=== PATIENT | female | born 1960 | race Caucasian/White ===

== ENCOUNTER 2017-02-05 00:30 | Emergency (ER) | payer BC ==
[2017-02-05 00:44] VITALS: BP 142/94
[2017-02-05] MEDS ORDERED: Ondansetron 4 MG Tab.DIS PO ONE (01:03)
--- NOTE | 2017-02-05 01:06 | EDM.PDOC ---
ED HISTORY OF PRESENT ILLNESS - General Chief Complaint: Respiratory Problem Stated Complaint: COUGH FEVER NAUSEA/DRY COUGH Time Seen by Provider: 02/05/17 00:49 Source of Information: Reports: Patient, RN notes reviewed - History of Present Illness INITIAL COMMENTS - FREE TEXT/NARRATIVE: 56-year-old lady comes in with severe cough, postnasal drainage leading to nausea and vomiting especially when she tries to lie flat to sleep. Her symptoms first started about 5 days ago more with nasal and sinus congestion. The cough been started a few days ago and has been worsening over the last 2 days. She continues to have a lot of nasal and sinus congestion and drainage. She states that what she does blow from her nose is clear. She's had some chills but no major fever. She does not feel that she is coughing sputum from her chest. 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 Denies: fever HEENT: Reports: Sinus problem (Nasal and sinus congestion and postnasal drainage ), Throat pain (Gone) Respiratory: Reports: Cough (Frequent, severe, repetitive). Denies: Shortness of Breath, Wheezing, Sputum Cardiovascular: Reports: Chest pain (Mild chest discomfort with coughing) GI/Abdominal: Reports: Nausea, Vomiting. Denies: Abdominal pain Musculoskeletal: Reports: other (Generalized achiness) Neurological: Reports: Headache ED EXAM, GENERAL - Physical Exam Exam: See Below General Appearance: alert, mild distress Eye Exam: bilateral eye: PERRL Throat/Mouth: Normal inspection, Normal oropharynx Head: No: facial tenderness, sinus tenderness Neck: supple, full range of motion. No: lymphadenopathy (L), lymphadenopathy (R ) Respiratory/Chest: no respiratory distress, lungs clear, normal breath sounds. No: rhonchi, wheezing Cardiovascular: regular rate, rhythm Extremities: normal inspection, normal range of motion Neurological: alert, oriented, no motor/sensory deficits Skin Exam: Warm, Dry, Normal color Course - Vital Signs Last Recorded V/S: Last Vital Signs Temp 98.0 F 02/05/17 00:42 Pulse 82 02/05/17 00:42 Resp 18 02/05/17 00:42 BP 142/94 H 02/05/17 00:42 Pulse Ox 96 02/05/17 00:42 - Orders/Labs/Meds Meds: Medications Discontinued Medications Generic Name Dose Route Start Last Admin Trade Name Jose PRN Reason Stop Dose Admin Ondansetron HCl 4 mg 02/05/17 01:03 02/05/17 01:08 Zofran Odt PO 02/05/17 01:04 4 mg ONETIME ONE Administration - Re-Assessments/Exams Free Text/Narrative Re-Assessment/Exam: 02/05/17 02:44 patient is not looking for an antibiotic. She states she knows what she has is viral. SHe primarily feels she needs some Zofran to help her with the nausea, vomiting from the drainage. Zofran 4 mg ODT has been given. Discharge instructions as documented Departure - Departure Time of Disposition: 14:00 Disposition: Home, Self-Care 01 Condition: fair Clinical Impression: Viral upper respiratory infection, Bronchitis Instructions: Acute Bronchitis, [id number], Upper Respiratory Infection, Adult, [id number] Referrals: PCP,None [Primary Care Provider] - Forms: ED Department Discharge Additional Instructions: Drink plenty of fluids, vaporizer or humidifier as needed, continue decongestant type medication, a dose of Zofran 4 mg ODT has been given while here in the ED. You may continue that every 6-8 hours as needed for nausea or vomiting. Symptoms should now start gradually getting better day by day. Followup clinic if not much better within 3-4 days as expected, return to ED as needed
== END 2017-02-05 01:20 | disposition home or self-care (01) ==
LOC: JD.ED 00:30
DX: J40 Bronchitis, not specified as acute or chronic (principal); J06.9 Acute upper respiratory infection, unspecified; Z90.49 Acquired absence of other specified parts of digestive tract; Z98.890 Other specified postprocedural states; Z88.0 Allergy status to penicillin; Z88.1 Allergy status to other antibiotic agents; Z91.040 Latex allergy status
CPT/HCPCS: 99283; A9270

== ENCOUNTER 2019-09-25 07:32 | Emergency (ER) | payer BC ==
[2019-09-25 07:42] VITALS: PULSE 68
[2019-09-25] MEDS ORDERED: Ondansetron 4 MG/2 ML SDV IVPUSH ONE (07:47)
[2019-09-25] MEDS ORDERED: Sodium Chloride 0.9% 10 ML Syringe FLUSH PRN (07:47)
[2019-09-25] MEDS ORDERED: HYDROmorphone 1 MG/ML Syringe IVPUSH ONE ×2 (07:48→09:07)
[2019-09-25] MEDS ORDERED: Ketorolac 30 MG/ML SDV IVPUSH ONE (07:49)
[2019-09-25] MEDS ORDERED: Sodium Chloride 0.9% 1,000 ML IV SCH (08:00)
--- NOTE | 2019-09-25 09:07 | CT ---
CT abdomen and pelvis Technique: Multiple axial sections were obtained from above the dome of the diaphragm inferiorly through the pubic symphysis. Intravenous and oral contrast not utilized. Study performed as a ureteral stone protocol. Comparison: Prior CT abdomen and pelvis exam of 01/09/12. Findings: Large hiatal hernia is noted. Visualized lung bases show nothing acute. Kidneys show no abnormal calcifications. No ureteral dilatation is seen. No ureteral calcifications are seen. Noncontrast appearance of the liver and spleen shows no focal abnormality. Adrenal glands show no nodule. Pancreas is within normal limits. Aorta shows atherosclerotic change which continues into the iliac vessels. No retroperitoneal adenopathy or mesenteric abnormalities are seen. No pelvic mass or adenopathy is seen. Appendix is seen which is normal in size. Numerous diverticuli are seen off the sigmoid colon and lesser diverticuli within the descending colon. No inflammatory change of diverticulitis is seen. No free fluid or inflammatory change is appreciated. Bone window settings were reviewed which show mild scattered degenerative change within the spine. Small fat-containing umbilical hernia is noted. Impression: 1. Large hiatal hernia. 2. No renal calculi, ureteral dilatation or ureteral stone is seen. 3. Colonic diverticuli with no findings of diverticulitis. 4. Other findings which are believed to be incidental. Nothing acute is appreciated on noncontrast CT study of the abdomen and pelvis. Diagnostic code #2 This report was dictated in [place] Standard Time
--- NOTE | 2019-09-25 10:55 | EDM.PDOC ---
ED HPI GENERAL MEDICAL PROBLEM - General Chief Complaint: Back Pain or Injury Stated Complaint: BACK PAIN Time Seen by Provider: 09/25/19 07:41 Source of Information: Reports: Patient, Family History Limitations: Reports: No Limitations - History of Present Illness INITIAL COMMENTS - FREE TEXT/NARRATIVE: The patient presents with sever right flank pain and nausea. This started lat night when she was sitting in a chair. She has had trouble with her back before and she felt it was that but the pain got much worse. She tried a muscle relaxer this morning and it did not help. She says the pain does radiate to her stomach. She has no history of kidney stones. She has no fever , chills, cough, chest pain or shortness of breath. She has no dysuria or hematuria. Onset: Gradual Duration: Day(s): (Last night) Location: Reports: Abdomen, Back Quality: Reports: Sharp Severity: Severe Improves with: Reports: None Worsens with: Reports: None Associated Symptoms: Reports: Nausea/Vomiting. Denies: Chest Pain, Cough, Fever /Chills, Headaches, Shortness of Breath Right Flank Pain Score (Numeric/FACES): 10 - Related Data Allergies Allergy/AdvReac Type Severity Reaction Status Date / Time cephalexin [From Keflex] Allergy Cannot Verified 02/05/17 00:41 Remember codeine Allergy Cannot Verified 09/25/19 07:42 Remember latex Allergy Cannot Verified 02/05/17 00:41 Remember Penicillins Allergy Cannot Verified 02/05/17 00:41 Remember Home Meds: Home Meds HYDROmorphone [Dilaudid] 2 mg PO Q6H PRN #15 tab 09/25/19 [Rx] Sulfamethoxazole/Trimethoprim [Bactrim Ds Tablet] 1 each PO BID #14 tablet 09/25 [Rx] Past Medical History Gastrointestinal History: Reports: Other (See Below) Other Gastrointestinal History: partial fundelectomy [employer] History: Reports: Ectopic , - Past Surgical History GI Surgical History: Reports: Cholecystectomy, Hernia Repair/Other, Carter Fundoplication Female Surgical History: Reports: Tubal Ligation Musculoskeletal Surgical History: Reports: Arthroscopic Knee Social & Family History - Tobacco Use Smoking Status *Q: Never Smoker - Recreational Drug Use Recreational Drug Use: No ED ROS GENERAL - Review of Systems Review Of Systems: See Below Constitutional: Reports: No Symptoms HEENT: Reports: No Symptoms Respiratory: Reports: No Symptoms Cardiovascular: Reports: No Symptoms Endocrine: Reports: No Symptoms GI/Abdominal: Reports: Abdominal Pain, Nausea. Denies: Diarrhea, Vomiting : Reports: Flank Pain (right) Musculoskeletal: Reports: Back Pain ED EXAM,LOWER BACK PAIN/INJURY - Physical Exam Exam: See Below Exam Limited By: No Limitations General Appearance: Alert, Moderate Distress Ears: Normal External Exam Nose: Normal Inspection Head: Atraumatic, Normocephalic Neck: Normal Inspection Respiratory/Chest: No Respiratory Distress, Lungs Clear, Normal Breath Sounds Cardiovascular: Regular Rate, Rhythm, No Edema, No Murmur GI/Abdominal: Soft, Non-Tender, No Organomegaly, No Mass Back Exam: CVA Tenderness (R) Extremities: Normal Inspection Neurological: Alert, No Motor/Sensory Deficits, Oriented x 3 Course - Vital Signs Last Recorded V/S: Last Vital Signs Temp 98.6 F 09/25/19 07:40 Pulse 68 09/25/19 07:40 Resp 16 09/25/19 07:40 BP Pulse Ox 99 09/25/19 07:40 - Orders/Labs/Meds Orders: Active Orders 24 hr Category Date Time Status Peripheral IV Care [RC] . DIRECTED Care 09/25/19 07:48 Active Sodium Chloride 0.9% [Normal Saline] 1,000 ml Med 09/25/19 08:00 Active IV ASDIRECTED Sodium Chloride 0.9% [Saline Flush] Med 09/25/19 07:47 Active 10 ml FLUSH ASDIRECTED PRN ED Antiemetic Medication Reflex [OM.PC] Stat Oth 09/25/19 07:47 Ordered Peripheral IV Insertion Adult [OM.PC] Stat Oth 09/25/19 07:47 Ordered Medication Orders Sodium Chloride (Normal Saline) 1,000 mls @ 125 mls/hr IV ASDIRECTED ESTEPHANIA Last Admin: 09/25/19 08:24 Dose: 125 mls/hr Sodium Chloride (Saline Flush) 10 ml FLUSH ASDIRECTED PRN PRN Reason: Keep Vein Open Last Admin: 09/25/19 08:17 Dose: 10 ml Labs: Laboratory Tests 09/25/19 09/25/19 09/25/19 Range/Units 07:56 07:56 09:50 WBC 11.24 H (3.98-10.04) K/mm3 RBC 5.04 (3.98-5.22) M/mm3 Hgb 14.6 (11.2-15.7) gm/dl Hct 43.1 (34.1-44.9) % MCV 85.5 (79.4-94.8) fl MCH 29.0 (25.6-32.2) pg MCHC 33.9 (32.2-35.5) g/dl RDW Std Deviation 41.9 (36.4-46.3) fL Plt Count 230 (182-369) K/mm3 MPV 9.7 (9.4-12.3) fl Neut % (Auto) 82.1 H (34.0-71.1) % Lymph % (Auto) 12.6 L (19.3-51.7) % Jerome % (Auto) 4.5 L (4.7-12.5) % Eos % (Auto) 0.4 L (0.7-5.8) Baso % (Auto) 0.3 (0.1-1.2) % Neut # (Auto) 9.22 H (1.56-6.13) K/mm3 Lymph # (Auto) 1.42 (1.18-3.74) K/mm3 Jerome # (Auto) 0.51 H (0.24-0.36) K/mm3 Eos # (Auto) 0.05 (0.04-0.36) K/mm3 Baso # (Auto) 0.03 (0.01-0.08) K/mm3 Sodium 143 (136-145) mEq/L Potassium 3.8 (3.5-5.1) mEq/L Chloride 107 (98-107) mEq/L Carbon Dioxide 23 (21-32) mEq/L Anion Gap 16.8 H (5-15) BUN 14 (7-18) mg/dL Creatinine 0.9 (0.55-1.02) mg/dL Est Cr Clr Drug Dosing 58.12 mL/min Estimated GFR (MDRD) > 60 (>60) mL/min BUN/Creatinine Ratio 15.6 (14-18) Glucose 109 H (74-106) mg/dL Calcium 9.0 (8.5-10.1) mg/dL Total Bilirubin 0.6 (0.2-1.0) mg/dL AST 17 (15-37) U/L ALT 23 (14-59) U/L Alkaline Phosphatase 67 (46-116) U/L Total Protein 7.4 (6.4-8.2) g/dl Albumin 4.2 (3.4-5.0) g/dl Globulin 3.2 gm/dL Albumin/Globulin Ratio 1.3 (1-2) Lipase 116 (73-393) U/L Urine Color Light yellow (Yellow) Urine Appearance Clear (Clear) Urine pH 7.0 (5.0-8.0) Ur Specific [place] > or = 1.030 (1.005-1.030) Urine Protein 1+ H (Negative) Urine Glucose (UA) Negative (Negative) Urine Ketones 1+ H (Negative) Urine Occult Blood 1+ H (Negative) Urine Nitrite Negative (Negative) Urine Bilirubin Negative (Negative) Urine Urobilinogen 0.2 (0.2-1.0) Ur Leukocyte Esterase 1+ H (Negative) Urine RBC 5-10 H (0-5) /hpf Urine WBC 5-10 H (0-5) /hpf Ur Squamous Epith Cells 0-5 (0-5) /hpf Urine Bacteria Moderate H (FEW) /hpf Urine Mucus Rare (FEW) /hpf Meds: Medications Generic Name Dose Route Start Last Admin Trade Name Freq PRN Reason Stop Dose Admin Sodium Chloride 1,000 mls @ 125 mls/hr 09/25/19 08:00 09/25/19 08:24 Normal Saline IV 125 mls/hr ASDIRECTED ESTEPHANIA Administration Sodium Chloride 10 ml 09/25/19 07:47 09/25/19 08:17 Saline Flush FLUSH 10 ml ASDIRECTED PRN Administration Keep Vein Open Discontinued Medications Generic Name Dose Route Start Last Admin Trade Name Freq PRN Reason Stop Dose Admin Hydromorphone HCl 1 mg 09/25/19 07:48 09/25/19 08:07 Dilaudid IVPUSH 09/25/19 07:49 1 mg ONETIME ONE Administration Hydromorphone HCl 1 mg 09/25/19 09:07 09/25/19 09:30 Dilaudid IVPUSH 09/25/19 09:08 0.5 mg ONETIME ONE Administration Ketorolac Tromethamine 30 mg 09/25/19 07:49 09/25/19 08:02 Toradol IVPUSH 09/25/19 07:50 30 mg ONETIME ONE Administration Ondansetron HCl 4 mg 09/25/19 07:47 09/25/19 08:01 Zofran IVPUSH 09/25/19 07:48 4 mg ONETIME ONE Administration - Re-Assessments/Exams Free Text/Narrative Re-Assessment/Exam: 09/25/19 10:52 I ordered an IV NS at 125mL/hr, zofran 4mg IV, dilaudid 1mg IV, toradol 30mg IV , labs, UA and a CT of her abdomen and pelvis without contrast. Her WBC was elevated at 11.24. Her anion gap was slightly elevated at 16.8. Her lipase was normal. Her UA shows a UTI. Her CT shows a large hiatal hernia. No renal calculi, ureteral dilatation or ureteral stone is seen. Colonic diverticuli with no findings of diverticulitis. She needed another dose of dilaudid because her pain was coming back. She has a UTI. I will treat her with some bactrim and I will give her some dilaudid for pain. 09/25/19 10:55 Departure - Departure Time of Disposition: 11:00 Disposition: Home, Self-Care 01 Condition: Good Clinical Impression: Low back pain Qualifiers: Chronicity: acute Back pain laterality: right Sciatica presence: without sciatica Qualified Code(s): M54.5 - Low back pain UTI (urinary tract infection) Qualifiers: Urinary tract infection type: site unspecified Hematuria presence: without hematuria Qualified Code(s): N39.0 - Urinary tract infection, site not specified - Discharge Information *PRESCRIPTION DRUG MONITORING PROGRAM REVIEWED*: No *COPY OF PRESCRIPTION DRUG MONITORING REPORT IN PATIENT BEATRICE: No Prescriptions: HYDROmorphone [Dilaudid] 2 mg PO Q6H PRN #15 tab PRN Reason: Pain Sulfamethoxazole/Trimethoprim [Bactrim Ds Tablet] 1 each PO BID #14 tablet Referrals: PCP,None [Primary Care Provider] - Angeline Navarro [employer] HELPER [ED Midlevel Provider] - 1 Week Additional Instructions: Drink plenty of fluids. Take the bactrim 2 times per day for a week. Take tylenol or motrin for pain. If that does not work, try the dilaudid. Please return if you are worse. Sepsis Event Note - Evaluation Sepsis Screening Result: No Definite Risk - Focused Exam Vital Signs: Vital Signs Temp Pulse Resp Pulse Ox 09/25/19 07:40 98.6 F 68 16 99 Date Exam was Performed: 09/25/19 Time Exam was Performed: 10:49 - My Orders Last 24 Hours: My Active Orders 09/25/19 07:47 Sodium Chloride 0.9% [Saline Flush] 10 ml FLUSH ASDIRECTED PRN ED Antiemetic Medication Reflex [OM.PC] Stat Peripheral IV Insertion Adult [OM.PC] Stat 09/25/19 07:48 Peripheral IV Care [RC] . DIRECTED 09/25/19 08:00 Sodium Chloride 0.9% [Normal Saline] 1,000 ml IV ASDIRECTED - Assessment/Plan Last 24 Hours: My Active Orders 09/25/19 07:47 Sodium Chloride 0.9% [Saline Flush] 10 ml FLUSH ASDIRECTED PRN ED Antiemetic Medication Reflex [OM.PC] Stat Peripheral IV Insertion Adult [OM.PC] Stat 09/25/19 07:48 Peripheral IV Care [RC] . DIRECTED 09/25/19 08:00 Sodium Chloride 0.9% [Normal Saline] 1,000 ml IV ASDIRECTED
== END 2019-09-25 11:11 | disposition home or self-care (01) ==
LOC: JD.ED 07:32
DX: M54.5 Low back pain (principal); N39.0 Urinary tract infection, site not specified; Z88.1 Allergy status to other antibiotic agents; Z88.5 Allergy status to narcotic agent; Z88.0 Allergy status to penicillin
CPT/HCPCS: 36415; 74176; 80053; 81001; 83690; 85025; J1170; J1885; J2405; J7030; 96361; 96374; 96375; 96376; 99284; 99284-25

== ENCOUNTER 2019-12-06 16:33 | Emergency (ER) | payer BC ==
[2019-12-06] MEDS ORDERED: Sodium Chloride 0.9% 1,000 ML IV STA (17:06)
[2019-12-06] MEDS ORDERED: Sodium Chloride 0.9% 10 ML Syringe FLUSH PRN ×2 (17:06→18:38)
[2019-12-06] MEDS ORDERED: Ondansetron 4 MG/2 ML SDV IVPUSH ONE (18:35)
[2019-12-06] MEDS ORDERED: Iopamidol 612 MG/ML 100 ML Bottle IVPUSH ONE (18:38)
[2019-12-06] MEDS ORDERED: Diatrizoate Meglumine/Diatrizoate Sodium 37% 120 ML Bottle PO ONE (18:38)
--- NOTE | 2019-12-06 18:48 | EDM.PDOC ---
ED HPI GENERAL MEDICAL PROBLEM - General Chief Complaint: Flank Pain Stated Complaint: R FLANK PAIN Time Seen by Provider: 12/06/19 16:41 Source of Information: Reports: Patient History Limitations: Reports: No Limitations - History of Present Illness INITIAL COMMENTS - FREE TEXT/NARRATIVE: The patient presents with right flank and right lower abdominal pain. This has been an ongoing issue since September. She came in then with right flank pain. She had a CT and labs and had a UTI. She did good for awhile and then in November she had it happen again and she went to [place] and she was admitted there for about 5 days. She had a CT done twice, US and an MRI. No reason was found for the pain. She started having pain again a couple days ago and she saw her provider in the clinic. She was going to order a CT of her abdomen and pelvis with IV and oral contrast but it was toward the end of the day and they do not have a podiatric technician. She was sent up here for further management. She has no fever, chills, cough, chest pain, shortness of breath, dysuria or hematuria. Onset: Gradual Duration: Day(s): Location: Reports: Abdomen, Back Quality: Reports: Sharp Severity: Moderate Improves with: Reports: None Worsens with: Reports: None Associated Symptoms: Reports: No Other Symptoms Right Flank Pain Score (Numeric/FACES): 7 - Related Data Allergies Allergy/AdvReac Type Severity Reaction Status Date / Time cephalexin [From Keflex] Allergy Cannot Verified 12/06/19 16:44 Remember codeine Allergy Cannot Verified 12/06/19 16:44 Remember latex Allergy Cannot Verified 12/06/19 16:44 Remember Penicillins Allergy Cannot Verified 12/06/19 16:44 Remember Home Meds: Home Meds HYDROmorphone [Dilaudid] 2 mg PO Q6H PRN #15 tab 09/25/19 [Rx] Cyclobenzaprine [Flexeril] 10 mg PO Q6H PRN 12/06/19 [History] Promethazine HCl 25 mg TOP Q6H 12/06/19 [History] Past Medical History HEENT History: Reports: Impaired Vision Gastrointestinal History: Reports: Hiatal Hernia, Other (See Below) Other Gastrointestinal History: partial fundelectomy, GI ulcer 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 , Psychiatric History: Reports: Anxiety - Past Surgical History HEENT Surgical History: Reports: Oral Surgery, Tonsillectomy GI Surgical History: Reports: Cholecystectomy, Hernia Repair/Other, Carter Fundoplication Female Surgical History: Reports: D&C, Tubal Ligation Musculoskeletal Surgical History: Reports: Arthroscopic Knee Social & Family History - Family History Family Medical History: Noncontributory - Tobacco Use Smoking Status *Q: Former Smoker Used Tobacco, but Quit: Yes Month/Year Tobacco Last Used: 1997 - Caffeine Use Caffeine Use: Reports: Soda, Tea - Recreational Drug Use Recreational Drug Use: No ED ROS GENERAL - Review of Systems Review Of Systems: See Below Constitutional: Reports: No Symptoms HEENT: Reports: No Symptoms Respiratory: Reports: No Symptoms Cardiovascular: Reports: No Symptoms Endocrine: Reports: No Symptoms GI/Abdominal: Reports: Abdominal Pain. Denies: Nausea, Vomiting : Reports: Flank Pain (right) ED EXAM, GI/ABD - Physical Exam Exam: See Below Exam Limited By: No Limitations General Appearance: Alert, No Apparent Distress Ears: Normal External Exam Nose: Normal Inspection Head: Atraumatic, Normocephalic Neck: Normal Inspection Respiratory/Chest: No Respiratory Distress, Lungs Clear, Normal Breath Sounds Cardiovascular: Regular Rate, Rhythm, No Edema, No Murmur GI/Abdominal Exam: Soft, No Organomegaly, No Mass, Tender (Moderate tenderness to the RLQ) Course - Vital Signs Last Recorded V/S: Last Vital Signs Temp 99.3 F 12/06/19 16:41 Pulse 71 12/06/19 16:41 Resp 19 12/06/19 16:41 BP 146/96 H 12/06/19 16:41 Pulse Ox 99 12/06/19 16:41 - Orders/Labs/Meds Orders: Active Orders 24 hr Category Date Time Status Peripheral IV Care [RC] . DIRECTED Care 12/06/19 17:06 Active CULTURE URINE [RM] Stat Lab 12/06/19 18:13 Received Sodium Chloride 0.9% [Saline Flush] Med 12/06/19 17:06 Active 10 ml FLUSH ASDIRECTED PRN Sodium Chloride 0.9% [Saline Flush] Med 12/06/19 18:38 Active 10 ml FLUSH ONETIME PRN Peripheral IV Insertion Adult [OM.PC] Stat Oth 12/06/19 17:06 Ordered Medication Orders Sodium Chloride (Saline Flush) 10 ml FLUSH ASDIRECTED PRN PRN Reason: Keep Vein Open Last Admin: 12/06/19 17:25 Dose: 10 ml Sodium Chloride (Saline Flush) 10 ml FLUSH ONETIME PRN PRN Reason: Keep Vein Open Last Admin: 12/06/19 18:57 Dose: 10 ml Labs: Laboratory Tests 12/06/19 12/06/19 12/06/19 Range/Units 17:25 17:25 18:13 WBC 9.74 (3.98-10.04) K/mm3 RBC 5.33 H (3.98-5.22) M/mm3 Hgb 15.5 (11.2-15.7) gm/dl Hct 46.5 H (34.1-44.9) % MCV 87.2 (79.4-94.8) fl MCH 29.1 (25.6-32.2) pg MCHC 33.3 (32.2-35.5) g/dl RDW Std Deviation 44.0 (36.4-46.3) fL Plt Count 240 (182-369) K/mm3 MPV 9.6 (9.4-12.3) fl Neut % (Auto) 72.3 H (34.0-71.1) % Lymph % (Auto) 21.3 (19.3-51.7) % Hubbard % (Auto) 5.9 (4.7-12.5) % Eos % (Auto) 0.3 L (0.7-5.8) Baso % (Auto) 0.1 (0.1-1.2) % Neut # (Auto) 7.05 H (1.56-6.13) K/mm3 Lymph # (Auto) 2.07 (1.18-3.74) K/mm3 Hubbard # (Auto) 0.57 H (0.24-0.36) K/mm3 Eos # (Auto) 0.03 L (0.04-0.36) K/mm3 Baso # (Auto) 0.01 (0.01-0.08) K/mm3 Sodium 141 (136-145) mEq/L Potassium 4.0 (3.5-5.1) mEq/L Chloride 105 (98-107) mEq/L Carbon Dioxide 25 (21-32) mEq/L Anion Gap 15.0 (5-15) BUN 12 (7-18) mg/dL Creatinine 1.0 (0.55-1.02) mg/dL Est Cr Clr Drug Dosing 54.51 mL/min Estimated GFR (MDRD) 57 (>60) mL/min BUN/Creatinine Ratio 12.0 L (14-18) Glucose 103 (74-106) mg/dL Calcium 9.8 (8.5-10.1) mg/dL Total Bilirubin 0.8 (0.2-1.0) mg/dL AST 15 (15-37) U/L ALT 24 (14-59) U/L Alkaline Phosphatase 75 (46-116) U/L Total Protein 8.0 (6.4-8.2) g/dl Albumin 4.4 (3.4-5.0) g/dl Globulin 3.6 gm/dL Albumin/Globulin Ratio 1.2 (1-2) Lipase 72 L (73-393) U/L Urine Color Light yellow (Yellow) Urine Appearance Slt cloudy H (Clear) Urine pH 6.5 (5.0-8.0) Ur Specific [place] 1.020 (1.005-1.030) Urine Protein Negative (Negative) Urine Glucose (UA) Negative (Negative) Urine Ketones Negative (Negative) Urine Occult Blood 1+ H (Negative) Urine Nitrite Negative (Negative) Urine Bilirubin Negative (Negative) Urine Urobilinogen 0.2 (0.2-1.0) Ur Leukocyte Esterase 1+ H (Negative) Urine RBC 0-5 (0-5) /hpf Urine WBC 10-20 H (0-5) /hpf Urine WBC Clumps Few (NOT SEEN) /hpf Ur Squamous Epith Cells 0-5 (0-5) /hpf Urine Bacteria Few (FEW) /hpf Urine Mucus Few (FEW) /hpf Meds: Medications Generic Name Dose Route Start Last Admin Trade Name Freq PRN Reason Stop Dose Admin Sodium Chloride 10 ml 12/06/19 17:06 12/06/19 17:25 Saline Flush FLUSH 10 ml ASDIRECTED PRN Administration Keep Vein Open Sodium Chloride 10 ml 12/06/19 18:38 12/06/19 18:57 Saline Flush FLUSH 10 ml ONETIME PRN Administration Keep Vein Open Discontinued Medications Generic Name Dose Route Start Last Admin Trade Name Freq PRN Reason Stop Dose Admin Diatrizoate Meglum/Diatrizoate Sod 120 ml 12/06/19 18:38 12/06/19 18:57 Gastrografin 37% PO 12/06/19 18:39 120 ml ONETIME ONE Administration Sodium Chloride 1,000 mls @ 1,000 mls/hr 12/06/19 17:06 12/06/19 17:26 Normal Saline IV 12/06/19 18:05 1,000 mls/hr .BOLUS STA Administration Iopamidol 100 ml 12/06/19 18:38 12/06/19 18:57 Isovue-300 (61%) IVPUSH 12/06/19 18:39 100 ml ONETIME ONE Administration Ondansetron HCl 4 mg 12/06/19 18:35 12/06/19 18:46 Zofran IVPUSH 12/06/19 18:36 4 mg ONETIME ONE Administration - Re-Assessments/Exams Free Text/Narrative Re-Assessment/Exam: 12/06/19 18:49 I ordered an IV NS 1L bolus, labs, UA and a CT of her abdomen and pelvis with IV and oral contrast. Her CBC and CMP look good. Her lipase is low at 72. 12/06/19 19:[address] shows nothing acute is appreciated on CT study of the abdomen and pelvis. I am not sure what is causing her pain. She has had multiple studies and no answer. I will have her follow up with Balbina Jaffe. Departure - Departure Time of Disposition: 19:45 Disposition: Home, Self-Care 01 Condition: Good Clinical Impression: Low back pain Qualifiers: Chronicity: acute Back pain laterality: right Sciatica presence: without sciatica Qualified Code(s): M54.5 - Low back pain - Discharge Information *PRESCRIPTION DRUG MONITORING PROGRAM REVIEWED*: Not Applicable *COPY OF PRESCRIPTION DRUG MONITORING REPORT IN PATIENT BEATRICE: Not Applicable Referrals: Balbina Jaffe PA-C [Primary Care Provider] - 1 Day Forms: ED Department Discharge Additional Instructions: Call Balbina in the morning and let her know that the CT looked good. Please return if you are worse. Sepsis Event Note - Evaluation Sepsis Screening Result: No Definite Risk - Focused Exam Vital Signs: Vital Signs Temp Pulse Resp BP Pulse Ox 12/06/19 16:41 99.3 F 71 19 146/96 H 99 Date Exam was Performed: 12/06/19 Time Exam was Performed: 19:40 - My Orders Last 24 Hours: My Active Orders 12/06/19 17:06 Peripheral IV Care [RC] . DIRECTED Sodium Chloride 0.9% [Saline Flush] 10 ml FLUSH ASDIRECTED PRN Peripheral IV Insertion Adult [OM.PC] Stat 12/06/19 18:13 CULTURE URINE [RM] Stat 12/06/19 18:38 Sodium Chloride 0.9% [Saline Flush] 10 ml FLUSH ONETIME PRN - Assessment/Plan Last 24 Hours: My Active Orders 12/06/19 17:06 Peripheral IV Care [RC] . DIRECTED Sodium Chloride 0.9% [Saline Flush] 10 ml FLUSH ASDIRECTED PRN Peripheral IV Insertion Adult [OM.PC] Stat 12/06/19 18:13 CULTURE URINE [RM] Stat 12/06/19 18:38 Sodium Chloride 0.9% [Saline Flush] 10 ml FLUSH ONETIME PRN
--- NOTE | 2019-12-06 19:28 | CT ---
CT abdomen and pelvis Technique: Multiple axial sections were obtained from above the dome of the diaphragm inferiorly through the pubic symphysis. Intravenous and oral contrast was utilized. Delayed images were also obtained through the bladder. Comparison: Prior stone protocol CT of 09/25/19. Findings: Visualized lung bases show nothing acute. Fairly large hiatal hernia is noted which is stable. Liver contains no focal abnormality. Prior cholecystectomy is noted. Spleen appears within normal limits. Adrenal glands show no nodule. Pancreas shows no abnormality. Kidneys show symmetric contrast enhancement without hydronephrosis or mass. Aorta shows no aneurysm. Mild atherosclerotic calcification is seen within the aorta. No retroperitoneal adenopathy or mesenteric abnormalities are seen. Appendix is seen which is normal in size. Diverticuli are seen within the sigmoid colon as well as portions of the descending colon. No inflammatory change is appreciated to indicate diverticulitis. No bowel dilatation is seen. No bowel wall thickening is identified. Bone window settings were reviewed which shows mild scattered degenerative change within the spine. No acute osseous finding is seen. Delayed images were obtained through the bladder which shows contrast within portions of the distal right and left ureters as well as contrast within the bladder. Impression: 1. Findings as described above. 2. Nothing acute is appreciated on CT study of the abdomen and pelvis. Diagnostic code #2 Study was dictated in [place] Standard Time
[2019-12-06 20:10] VITALS: BP 122/71; PULSE 69
== END 2019-12-06 20:05 | disposition home or self-care (01) ==
LOC: JD.ED 16:33
DX: M54.5 Low back pain (principal); Z88.1 Allergy status to other antibiotic agents; Z88.5 Allergy status to narcotic agent; Z91.040 Latex allergy status; Z88.0 Allergy status to penicillin; Z87.891 Personal history of nicotine dependence
CPT/HCPCS: 36415; 74177; 80053; 81001; 83690; 85025; 87086; 96361; 96374; 99284; J2405; J7030; Q9963; Q9967; 99283

== ENCOUNTER 2020-08-26 19:38 | Emergency (ER) | payer BC ==
[2020-08-26 20:13] VITALS: BP 129/92; PULSE 94
[2020-08-26] MEDS ORDERED: Metoclopramide 10 MG/2 ML SDV IVPUSH STA (20:29)
[2020-08-26] MEDS ORDERED: Sodium Chloride 0.9% 1,000 ML IV ONE (20:29)
--- NOTE | 2020-08-26 20:35 | EDM.PDOC ---
ED HPI GENERAL MEDICAL PROBLEM - General Chief Complaint: Respiratory Problem Stated Complaint: COVID POSITIVE CHEST PAIN Time Seen by Provider: 08/26/20 19:47 Source of Information: Reports: Patient History Limitations: Reports: No Limitations - History of Present Illness INITIAL COMMENTS - FREE TEXT/NARRATIVE: Mrs. Ghotra is a very pleasant 60-year-old woman who now presents to the ED with symptomatic COVID-19. She states that both her and son tested positive 6 days ago, on 08/20/2020. The patient herself was tested this past , 08/22/2020, receiving a positive result yesterday, 08/25/2020. She states that she developed symptoms of loss of taste and smell, generalized body aches, nausea without vomiting, watery diarrhea, headache, and a fever on 08/20/2020. Her T-max was 101.5 degrees tonight. She has been taking Zofran ODT, which has not been helping much. She states that she feels lightheaded when she stands. Here in the ED, the patient is found to be hemodynamically stable, afebrile, saturating 97% on room air. Prior to 08/20/2020, the patient denies having a recent fever, chills, sore throat, ear pain, nasal or sinus congestion, cough, dyspnea, chest pain, palpitations, nausea, vomiting, constipation, diarrhea, abdominal pain, urinary symptoms, recent weight gain or weight loss, recent bloody bowel movements or black bowel movements, recent joint aches, headaches, or rashes. The patient's PCP is FREDDIE Giang. Her Urologist is Dr. Gaurang Cali. She has not received an influenza vaccine this season, and declined an offer to receive one here today. Generalized Pain Score (Numeric/FACES): 7 - Related Data Allergies Allergy/AdvReac Type Severity Reaction Status Date / Time cephalexin [From Keflex] Allergy Cannot Verified 08/26/20 20:13 Remember codeine Allergy Cannot Verified 08/26/20 20:13 Remember latex Allergy Cannot Verified 08/26/20 20:13 Remember Penicillins Allergy Cannot Verified 08/26/20 20:13 Remember Home Meds: Home Meds HYDROmorphone [Dilaudid] 2 mg PO Q6H PRN #15 tab 09/25/19 [Rx] Cyclobenzaprine [Flexeril] 10 mg PO Q6H PRN 12/06/19 [History] Promethazine HCl 25 mg TOP Q6H 12/06/19 [History] Metoclopramide [Reglan] 1 tab PO Q6H PRN #10 tab 08/26/20 [Rx] Past Medical History HEENT History: Reports: Allergic Rhinitis, Impaired Vision Gastrointestinal History: Reports: Hiatal Hernia, PUD Genitourinary History: Reports: Acute Renal Failure (due to excess ibuprofen, resolved) 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 Psychiatric History: Reports: Anxiety - Infectious Disease History Infectious Disease History: Reports: Novel Coronavirus (dx'd 08/22/2020) - Past Surgical History HEENT Surgical History: Reports: Oral Surgery, Tonsillectomy GI Surgical History: Reports: Cholecystectomy (2012), Hernia Repair/Other, Carter Fundoplication Female Surgical History: Reports: D&C, Tubal Ligation Musculoskeletal Surgical History: Reports: Arthroscopic Knee Social & Family History - Family History Family Medical History: No Pertinent Family History - Caffeine Use Caffeine Use: Reports: Soda, Tea - Living Situation & Occupation Living situation: Reports: , with Spouse ED ROS GENERAL - Review of Systems Review Of Systems: Comprehensive ROS is negative, except as noted in HPI. ED EXAM, GENERAL - Physical Exam Exam: See Below Exam Limited By: No Limitations General Appearance: Alert, WD/WN, No Apparent Distress Eye Exam: Bilateral Eye: EOMI, Normal Inspection Ears: Normal External Exam, Hearing Grossly Normal Nose: Normal Inspection Throat/Mouth: Normal Inspection, Normal Lips, Normal Voice, No Airway Compromise Head: Atraumatic, Normocephalic Neck: Normal Inspection, Full Range of Motion Respiratory/Chest: No Respiratory Distress, Lungs Clear, Normal Breath Sounds, No Accessory Muscle Use Cardiovascular: Normal Peripheral Pulses, Regular Rate, Rhythm, No Edema, No Gallop, No JVD, No Murmur, No Rub Peripheral Pulses: 3+: Radial (L), Radial (R) GI/Abdominal: Normal Bowel Sounds, Soft, Non-Tender, No Organomegaly, No Distention, No Abnormal Bruit, No Mass Back Exam: Normal Inspection, Full Range of Motion, NT Extremities: Normal Inspection, Normal Range of Motion, No Pedal Edema, Normal Capillary Refill Neurological: Alert, Oriented, Normal Cognition, No Motor/Sensory Deficits Psychiatric: Normal Affect Skin Exam: Warm, Dry, Intact, Normal Color, No Rash Course - Vital Signs Last Recorded V/S: Last Vital Signs Temp 37.3 C 08/26/20 19:55 Pulse 94 08/26/20 19:55 Resp 18 08/26/20 19:55 BP 129/92 H 08/26/20 19:55 Pulse Ox 97 08/26/20 19:55 Orthostatic Blood Pressure [ 120/86 Standing] Orthostatic Blood Pressure [ 129/88 Sitting] Orthostatic Blood Pressure [ 128/82 Supine] - Orders/Labs/Meds Labs: Laboratory Tests 08/26/20 08/26/20 Range/Units 20:09 20:43 WBC 3.54 L (3.98-10.04) K/mm3 RBC 5.03 (3.98-5.22) M/mm3 Hgb 14.8 (11.2-15.7) gm/dl Hct 43.3 (34.1-44.9) % MCV 86.1 (79.4-94.8) fl MCH 29.4 (25.6-32.2) pg MCHC 34.2 (32.2-35.5) g/dl RDW Std Deviation 43.2 (36.4-46.3) fL Plt Count 145 L D (182-369) K/mm3 MPV 9.8 (9.4-12.3) fl Neutrophils % (Manual) 70 H (40-60) % Band Neutrophils % 0 (0-10) % Lymphocytes % (Manual) 24 (20-40) % Atypical Lymphs % 0 % Monocytes % (Manual) 4 (2-10) % Eosinophils % (Manual) 1 (0.7-5.8) % Basophils % (Manual) 1 (0.1-1.2) Platelet Estimate Adequate Plt Morphology Comment Normal RBC Morph Comment Normal Sodium 137 (136-145) mEq/L Potassium 3.2 L (3.5-5.1) mEq/L Chloride 100 (98-107) mEq/L Carbon Dioxide 23 (21-32) mEq/L Anion Gap 17.2 H (5-15) BUN 14 (7-18) mg/dL Creatinine 0.9 (0.55-1.02) mg/dL Est Cr Clr Drug Dosing 59.81 mL/min Estimated GFR (MDRD) > 60 (>60) mL/min BUN/Creatinine Ratio 15.6 (14-18) Glucose 118 H (74-106) mg/dL Calcium 8.9 (8.5-10.1) mg/dL Magnesium 1.7 L (1.8-2.4) mg/dl Total Bilirubin 0.4 (0.2-1.0) mg/dL AST 22 (15-37) U/L ALT 22 (14-59) U/L Alkaline Phosphatase 60 (46-116) U/L Total Protein 7.3 (6.4-8.2) g/dl Albumin 3.9 (3.4-5.0) g/dl Globulin 3.4 gm/dL Albumin/Globulin Ratio 1.2 (1-2) Meds: Medications Discontinued Medications Generic Name Dose Route Start Last Admin Trade Name Freq PRN Reason Stop Dose Admin Sodium Chloride 1,000 mls @ 999 mls/hr 08/26/20 20:29 08/26/20 20:47 Normal Saline IV 08/26/20 21:29 999 mls/hr ONETIME ONE Administration Metoclopramide HCl 10 mg 08/26/20 20:29 08/26/20 20:47 Reglan IVPUSH 08/26/20 20:30 10 mg ONETIME STA Administration Potassium Chloride 40 meq 08/26/20 21:10 08/26/20 21:54 Klor-Con M20 PO 08/26/20 21:11 40 meq ONETIME ONE Administration - Re-Assessments/Exams Free Text/Narrative Re-Assessment/Exam: 08/26/20 20:30 The patient does not meet current guidelines for treatment with bamlanivimab. I have ordered orthostatics, along with a CBC, CMP, and magnesium level. In the meantime, the patient will be given 1 L of IV fluid and 10 mg of IV Reglan, to see if we can get her feeling better. 08/26/20 21:11 The patient's potassium is low at 3.2. I ordered 40 mEq of oral KCl. The remainder of his CMP, his CBC, and magnesium level are unremarkable. 08/26/20 21:35 The patient is not orthostatic. 08/26/20 21:36 Test results discussed with the patient. About 800 mL of the 1 L IV fluid that I ordered has infused so far, but the patient states that she would like to go home now. She states that she feels better after the Reglan. I will submit a prescription for it. Departure - Departure Time of Disposition: 21:37 Disposition: Home, Self-Care 01 Condition: Good Clinical Impression: COVID-19, Hypokalemia, Nausea - Discharge Information *PRESCRIPTION DRUG MONITORING PROGRAM REVIEWED*: Not Applicable *COPY OF PRESCRIPTION DRUG MONITORING REPORT IN PATIENT BEATRICE: Not Applicable Prescriptions: Metoclopramide [Reglan] 1 tab PO Q6H PRN #10 tab PRN Reason: Nausea/Vomiting Instructions: COVID-19, Hypokalemia Referrals: Balbina Jaffe PA-C [Primary Care Provider] - Gaurang Cali MD [Ordering Only Provider] - Forms: ED Department Discharge Additional Instructions: You were seen in the emergency room for generalized body aches, nausea, watery diarrhea, loss of taste and smell, fever, and headache after being diagnosed with COVID-19 on 08/22/2020. Work-up in the ER included blood tests and positional blood pressure checks. Your blood tests found your potassium to be mildly depressed at 3.2, otherwise, your blood work was unremarkable, and your blood pressures maintain themselves between lying and standing. You are not dehydrated. You were given oral potassium replacement in the ER. Your symptoms improved after being given IV fluid and IV Reglan. A prescription for Reglan has been sent to the [facility] located in the [facility] [place] store. You may take 1 tablet of Reglan up to every 6 hours, as needed for nausea/vomiting. If you like, you can alternate Reglan and Zofran, however, it is very important that you not take both of them at the same time. Stay adequately hydrated. Gatorade or Powerade are probably best. Avoid juice and milk, as these may make your diarrhea worse. If you are hungry, we recommend a bland diet, such as rice, oatmeal, or toast. Chicken noodle soup with saltine crackers is an excellent choice. If any other problems, please do not hesitate to return to the ER. Sepsis Event Note (ED) - Evaluation Sepsis Screening Result: No Definite Risk - Focused Exam Vital Signs: Vital Signs Temp Pulse Resp BP Pulse Ox 08/26/20 19:55 37.3 C 94 18 129/92 H 97
[2020-08-26] MEDS ORDERED: Potassium Chloride 20 MEQ Tab.ER PO ONE (21:10)
== END 2020-08-26 21:58 | disposition home or self-care (01) ==
LOC: JD.ED 19:38
DX: U07.1 COVID-19 (principal); E87.6 Hypokalemia; Z88.1 Allergy status to other antibiotic agents; Z88.5 Allergy status to narcotic agent; Z91.040 Latex allergy status; Z88.0 Allergy status to penicillin
CPT/HCPCS: 36415; 80053; 83735; 85007; 85027; 96374; 99284; A9270; J2765; J7030

== ENCOUNTER 2020-08-30 08:14 | Emergency (ER) | payer BC ==
[2020-08-30 09:06] VITALS: BP 131/89; PULSE 88
[2020-08-30] MEDS ORDERED: Sodium Chloride 0.9% 10 ML Syringe FLUSH PRN (09:32)
[2020-08-30] MEDS ORDERED: Ondansetron 4 MG/2 ML SDV IVPUSH ONE (09:32)
[2020-08-30] MEDS ORDERED: HYDROmorphone 0.5 MG/0.5 ML Syringe IVPUSH ONE ×2 (09:32→12:36)
[2020-08-30] MEDS ORDERED: Sodium Chloride 0.45% 1,000 ML IV SCH ×2 (09:45→12:30)
--- NOTE | 2020-08-30 09:47 | EDM.PDOC ---
ED HPI GENERAL MEDICAL PROBLEM - General Chief Complaint: Respiratory Problem Stated Complaint: COVID +,NAUSEA,FEVER,AND SOB Time Seen by Provider: 08/30/20 09:11 Source of Information: Reports: Patient, RN Notes Reviewed - History of Present Illness INITIAL COMMENTS - FREE TEXT/NARRATIVE: Onset of covid sx about 9 to 10 days ago. Has been getting much more short of breath the last 2 to 3 days. Has had persistent fever, Hansen, body aches, nausea, has "lost about 15 lbs". Does not smoke. No known hx of diabetes, Htn, CAD. Hx mild asthma. Generalized Pain Score (Numeric/FACES): 10 - Related Data Allergies Allergy/AdvReac Type Severity Reaction Status Date / Time cephalexin [From Keflex] Allergy Cannot Verified 08/31/20 06:37 Remember codeine Allergy Cannot Verified 08/31/20 06:37 Remember latex Allergy Cannot Verified 08/31/20 06:37 Remember Penicillins Allergy Cannot Verified 08/31/20 06:37 Remember Home Meds: Home Meds Cyclobenzaprine [Flexeril] 10 mg PO Q6H PRN 12/06/19 [History] Metoclopramide [Reglan] 1 tab PO Q6H PRN #10 tab 08/26/20 [Rx] Ondansetron [Zofran ODT] 4 mg PO Q6H PRN 08/30/20 [History] Past Medical History HEENT History: Reports: Allergic Rhinitis, Impaired Vision Gastrointestinal History: Reports: Hiatal Hernia, PUD Other Gastrointestinal History: partial fundelectomy, GI ulcer Genitourinary History: Reports: Acute Renal Failure 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 Psychiatric History: Reports: Anxiety - Infectious Disease History Infectious Disease History: Reports: Novel Coronavirus - Past Surgical History HEENT Surgical History: Reports: Oral Surgery, Tonsillectomy GI Surgical History: Reports: Cholecystectomy, Hernia Repair/Other, Carter Fundoplication Female Surgical History: Reports: D&C, Tubal Ligation Musculoskeletal Surgical History: Reports: Arthroscopic Knee Social & Family History - Family History Family Medical History: No Pertinent Family History - Tobacco Use Tobacco Use Status *Q: Never Tobacco User - Caffeine Use Caffeine Use: Reports: None - Recreational Drug Use Recreational Drug Use: No - Living Situation & Occupation Living situation: Reports: , with Spouse ED ROS GENERAL - Review of Systems Review Of Systems: See Below Constitutional: Reports: Fever, Chills HEENT: Reports: Rhinitis. Denies: Throat Pain Respiratory: Reports: Shortness of Breath, Wheezing, Cough Cardiovascular: Reports: Palpitations GI/Abdominal: Reports: Decreased Appetite, Nausea. Denies: Abdominal Pain, Vomiting Musculoskeletal: Reports: Other (generalized achiness) Skin: Denies: Rash Neurological: Reports: Dizziness, Headache ED EXAM, GENERAL - Physical Exam Exam: See Below General Appearance: Alert, Moderate Distress Eye Exam: Bilateral Eye: PERRL Nose: Normal Inspection Head: Atraumatic. No: Facial Swelling Neck: Supple, Other (No JVD) Respiratory/Chest: Respiratory Distress (mild tachypnea) Cardiovascular: Regular Rate, Rhythm Extremities: Normal Inspection, Normal Range of Motion Neurological: Alert, Oriented, No Motor/Sensory Deficits Skin Exam: Warm, Dry, Normal Color Course - Vital Signs Last Recorded V/S: Last Vital Signs Temp 99.7 F 08/30/20 09:03 Pulse 88 08/30/20 09:03 Resp 22 H 08/30/20 09:03 BP 131/89 08/30/20 09:03 Pulse Ox 93 L 08/30/20 09:03 - Orders/Labs/Meds Labs: Laboratory Tests 08/30/20 08/30/20 08/30/20 Range/Units 09:33 10:10 10:10 WBC 4.80 (3.98-10.04) K/mm3 RBC 4.86 (3.98-5.22) M/mm3 Hgb 14.4 (11.2-15.7) gm/dl Hct 41.2 (34.1-44.9) % MCV 84.8 (79.4-94.8) fl MCH 29.6 (25.6-32.2) pg MCHC 35.0 (32.2-35.5) g/dl RDW Std Deviation 42.7 (36.4-46.3) fL Plt Count 153 L (182-369) K/mm3 MPV 9.2 L (9.4-12.3) fl Neut % (Auto) 75.4 H (34.0-71.1) % Lymph % (Auto) 12.5 L (19.3-51.7) % Miner % (Auto) 11.9 (4.7-12.5) % Eos % (Auto) 0 L (0.7-5.8) Baso % (Auto) 0.2 (0.1-1.2) % Neut # (Auto) 3.62 (1.56-6.13) K/mm3 Lymph # (Auto) 0.60 L (1.18-3.74) K/mm3 Miner # (Auto) 0.57 H (0.24-0.36) K/mm3 Eos # (Auto) 0.00 L (0.04-0.36) K/mm3 Baso # (Auto) 0.01 (0.01-0.08) K/mm3 D-Dimer, Quantitative (0.19-0.50) mg/L ABG pH 7.43 (7.35-7.45) ABG pCO2 35.2 (35.0-45.0) mmHg ABG pO2 69.0 L (80.0-100.0) mmHg ABG HCO3 22.7 (22.0-26.0) meq/L ABG O2 Saturation 92.9 L (96.0-97.0) % ABG Base Excess -0.6 (-2-2.0) Nezo Test Positive O2 Delivery Device Nasal cannula Oxygen Flow Rate 1.0 FiO2 0.00 L (21.00-100.00) % Sodium (136-145) mEq/L Potassium (3.5-5.1) mEq/L Chloride (98-107) mEq/L Carbon Dioxide (21-32) mEq/L Anion Gap (5-15) BUN (7-18) mg/dL Creatinine (0.55-1.02) mg/dL Est Cr Clr Drug Dosing mL/min Estimated GFR (MDRD) (>60) mL/min BUN/Creatinine Ratio (14-18) Glucose (74-106) mg/dL Calcium (8.5-10.1) mg/dL Total Bilirubin (0.2-1.0) mg/dL AST (15-37) U/L ALT (14-59) U/L Alkaline Phosphatase (46-116) U/L Troponin I (0.00-0.056) ng/mL C-Reactive Protein 5.5 H* (<1.0) mg/dL Total Protein (6.4-8.2) g/dl Albumin (3.4-5.0) g/dl Globulin gm/dL Albumin/Globulin Ratio (1-2) 08/30/20 08/30/20 Range/Units 10:10 10:10 WBC (3.98-10.04) K/mm3 RBC (3.98-5.22) M/mm3 Hgb (11.2-15.7) gm/dl Hct (34.1-44.9) % MCV (79.4-94.8) fl MCH (25.6-32.2) pg MCHC (32.2-35.5) g/dl RDW Std Deviation (36.4-46.3) fL Plt Count (182-369) K/mm3 MPV (9.4-12.3) fl Neut % (Auto) (34.0-71.1) % Lymph % (Auto) (19.3-51.7) % Miner % (Auto) (4.7-12.5) % Eos % (Auto) (0.7-5.8) Baso % (Auto) (0.1-1.2) % Neut # (Auto) (1.56-6.13) K/mm3 Lymph # (Auto) (1.18-3.74) K/mm3 Miner # (Auto) (0.24-0.36) K/mm3 Eos # (Auto) (0.04-0.36) K/mm3 Baso # (Auto) (0.01-0.08) K/mm3 D-Dimer, Quantitative 0.42 (0.19-0.50) mg/L ABG pH (7.35-7.45) ABG pCO2 (35.0-45.0) mmHg ABG pO2 (80.0-100.0) mmHg ABG HCO3 (22.0-26.0) meq/L ABG O2 Saturation (96.0-97.0) % ABG Base Excess (-2-2.0) Enzo Test O2 Delivery Device Oxygen Flow Rate FiO2 (21.00-100.00) % Sodium 141 (136-145) mEq/L Potassium 2.6 L (3.5-5.1) mEq/L Chloride 102 (98-107) mEq/L Carbon Dioxide 24 (21-32) mEq/L Anion Gap 17.6 H (5-15) BUN 19 H (7-18) mg/dL Creatinine 0.9 (0.55-1.02) mg/dL Est Cr Clr Drug Dosing 57.40 mL/min Estimated GFR (MDRD) > 60 (>60) mL/min BUN/Creatinine Ratio 21.1 H (14-18) Glucose 126 H (74-106) mg/dL Calcium 8.9 (8.5-10.1) mg/dL Total Bilirubin 0.8 (0.2-1.0) mg/dL AST 33 (15-37) U/L ALT 29 (14-59) U/L Alkaline Phosphatase 49 (46-116) U/L Troponin I < 0.017 (0.00-0.056) ng/mL C-Reactive Protein (<1.0) mg/dL Total Protein 7.1 (6.4-8.2) g/dl Albumin 3.5 (3.4-5.0) g/dl Globulin 3.6 gm/dL Albumin/Globulin Ratio 1.0 (1-2) Meds: Medications Discontinued Medications Generic Name Dose Route Start Last Admin Trade Name Freq PRN Reason Stop Dose Admin Acetaminophen 975 mg 08/30/20 15:11 08/30/20 15:47 Tylenol PO 08/30/20 15:12 975 mg NOW ONE Administration Hydromorphone HCl 0.5 mg 08/30/20 09:32 08/30/20 10:08 Dilaudid IVPUSH 08/30/20 09:33 0.5 mg ONETIME ONE Administration Hydromorphone HCl 0.5 mg 08/30/20 12:36 08/30/20 12:42 Dilaudid IVPUSH 08/30/20 12:37 0.5 mg ONETIME ONE Administration Hydromorphone HCl Confirm 08/30/20 12:37 08/30/20 12:43 Dilaudid Administered 08/30/20 12:38 Not Given Dose 0.5 mg .ROUTE .STK-MED ONE Sodium Chloride Confirm 08/30/20 09:53 08/30/20 09:59 Normal Saline Administered 08/30/20 09:54 Not Given Dose 1,000 mls @ as directed .ROUTE .STK-MED ONE Sodium Chloride 1,000 mls @ 999 mls/hr 08/30/20 09:57 08/30/20 09:59 Normal Saline IV 08/30/20 10:57 Not Given ONETIME ONE Sodium Chloride 1,000 mls @ 150 mls/hr 08/30/20 10:00 08/30/20 12:46 Normal Saline IV 75 mls/hr ASDIRECTED ESTEPHANIA Infusion Potassium Chloride 10 meq/ 100 mls @ 50 mls/hr 08/30/20 11:00 08/30/20 11:31 Premix IV 08/30/20 12:59 25 mls/hr ASDIRECTED ONE Infusion Potassium Chloride 10 meq/ 100 mls @ 50 mls/hr 08/30/20 11:01 08/30/20 12:46 Premix IV 08/30/20 13:00 25 mls/hr ASDIRECTED ONE Infusion Sodium Chloride 1,000 mls @ 75 mls/hr 08/30/20 12:45 08/30/20 12:45 Normal Saline IV 75 mls/hr ASDIRECTED ESTEPHANIA Administration Metoclopramide HCl 5 mg 08/30/20 11:19 08/30/20 11:24 Reglan IVPUSH 08/30/20 11:20 5 mg ONETIME ONE Administration Ondansetron HCl 4 mg 08/30/20 09:32 08/30/20 10:08 Zofran IVPUSH 08/30/20 09:33 4 mg ONETIME ONE Administration Sodium Chloride 10 ml 08/30/20 09:32 08/30/20 10:09 Saline Flush FLUSH 10 ml ASDIRECTED PRN Administration Keep Vein Open - Re-Assessments/Exams Free Text/Narrative Re-Assessment/Exam: 08/30/20 11:20 CXR is OK, overall looks good. Slight interstitial prominence L base, could be slight viral infiltrate vs atelectesis. 08/30/20 11:24. WBC 4800. DD 0.42. ABG's room air 69/7.43/35.2/22.7. K+ 2.6. Will give 20 meq K+ IV. Have given zofran and dilaudid IV, still nauseated, will give reglan 5 mg IV. Have given 20 meq K+ IV. Sats have been running 89 to 91 % room air. She would like to go home on oxygen and than would help her breathing. Have arranged with [facility] to set her up with home oxygen. Discharge instr. as documented. Departure - Departure Time of Disposition: 16:37 Disposition: Home, Self-Care 01 Condition: Fair Clinical Impression: COVID-19 virus infection - Discharge Information Instructions: COVID-19 Referrals: Balbina Jaffe PA-C [Primary Care Provider] - Forms: ED Department Discharge Additional Instructions: Your CXR was mostly clear, you may have slight viral pneumonia L lung base. Continue to rest. Your symptoms now should start getting better over the next 3 to 5 days. Tylenol q 6 to 8 hr as needed for discomfort. Oxygen concentrator to run at 2 L NC. If your breathing becomes difficulty at the 2 liters you can turn that up to 3 or 4. If your breathing is still difficult you need to return to the ED. Sepsis Event Note (ED) - Evaluation Sepsis Screening Result: No Definite Risk
[2020-08-30] MEDS ORDERED: Sodium Chloride 0.9% 1,000 ML ONE (09:53)
[2020-08-30] MEDS ORDERED: Sodium Chloride 0.9% 1,000 ML IV ONE (09:57)
[2020-08-30] MEDS ORDERED: Sodium Chloride 0.9% 1,000 ML IV SCH ×2 (10:00→12:45)
[2020-08-30] MEDS ORDERED: Potassium Chloride 10 MEQ in Premix Bag 1 BAG IV ONE ×2 (11:00→11:01)
[2020-08-30] MEDS ORDERED: Metoclopramide 10 MG/2 ML SDV IVPUSH ONE (11:19)
[2020-08-30] MEDS ORDERED: HYDROmorphone 0.5 MG/0.5 ML Syringe ONE (12:37)
[2020-08-30] MEDS ORDERED: Acetaminophen 325 MG Tab PO ONE (15:11)
--- NOTE | 2020-09-02 10:16 | CR ---
PROCEDURE INFORMATION: Exam: XR Chest, 1 View Exam date and time: 08/30/2020 9:40 AM Age: 60 years old Clinical indication: Cough and dyspnea and fever and other: Covid + for 10 days TECHNIQUE: Imaging protocol: XR of the chest Views: 1 view. COMPARISON: No relevant prior studies available. FINDINGS: Lungs: Slight interstitial prominence in the left base. No focal consolidation. Pleural space: Unremarkable. No pleural effusion. No pneumothorax. Heart/Mediastinum: Soft tissue and gas projecting behind the heart, could be an esophageal hiatal hernia. Vasculature: Aortic calcifications. Bones/joints: Unremarkable. IMPRESSION: 1. Slight interstitial prominence lung base could be infiltrate or atelectasis. 2. Probable esophageal hiatal hernia. Lateral view of the chest would be helpful to confirm this. Thank you for allowing us to participate in the care of your patient. Dictated and Authenticated by: Rupnider Howard MD 08/30/2020 11:42 AM Central Time ([place] & [place]) MILLA
== END 2020-08-30 17:50 | disposition home or self-care (01) ==
LOC: JD.ED 08:14
DX: U07.1 COVID-19 (principal); Z88.1 Allergy status to other antibiotic agents; Z88.5 Allergy status to narcotic agent; Z91.040 Latex allergy status; Z88.0 Allergy status to penicillin; Z79.899 Other long term (current) drug therapy
CPT/HCPCS: 36415; 36600; 71045; 80053; 82803; 84484; 85025; 85379; 86140; 96365; 96366; 96375; 96376; 99285; A9270; J1170; J2405; J2765; J3480; J7030; 99284

== ENCOUNTER 2020-08-31 06:17 | Emergency (ER) | payer BC ==
[2020-08-31] MEDS ORDERED: Ondansetron 4 MG/2 ML SDV IVPUSH ONE (07:13)
[2020-08-31] MEDS ORDERED: Sodium Chloride 0.9% 10 ML Syringe FLUSH PRN (07:13)
[2020-08-31] MEDS ORDERED: Sodium Chloride 0.9% 1,000 ML IV SCH ×2 (07:15→10:00)
--- NOTE | 2020-08-31 08:21 | EDM.PDOC ---
ED HPI GENERAL MEDICAL PROBLEM - General Chief Complaint: Respiratory Problem Stated Complaint: [facility] Time Seen by Provider: 08/31/20 06:56 Source of Information: Reports: Patient History Limitations: Reports: No Limitations - History of Present Illness INITIAL COMMENTS - FREE TEXT/NARRATIVE: The patient presents with a cough, fever, generalized weakness, nausea, s hortness of breath and diarrhea. The patient is COVID 19 positive. This is her 3rd visit here. She did have COVID pneumonia with an infiltrates in the let lower lobe. She was given home oxygen but she is doing worse. She tested positive for COVID 19 on 08/20. She had some symptoms a few days before that. She was not a candidate for bamlanivimab. She did not meat admission criteria the past 2 visits. Her oxygen saturations at home have been down in the mid 80s. She is requiring oxygen. She is on 2L by nasal cannula here and her oxygen level is up to 95%. She has no history of asthma or COPD. She does not smoke. She has no history of heart disease, HTN or hypercholesterolemia. She is very nauseated and is also having diarrhea. Onset: Gradual Duration: Week(s): Severity: Moderate Improves with: Reports: None Worsens with: Reports: None Associated Symptoms: Reports: Cough, Fever/Chills, Nausea/Vomiting, Shortness of Breath. Denies: Chest Pain, Headaches Back Pain Score (Numeric/FACES): 8 - Related Data Allergies Allergy/AdvReac Type Severity Reaction Status Date / Time cephalexin [From Keflex] Allergy Cannot Verified 08/31/20 06:37 Remember codeine Allergy Cannot Verified 08/31/20 06:37 Remember latex Allergy Cannot Verified 08/31/20 06:37 Remember Penicillins Allergy Cannot Verified 08/31/20 06:37 Remember Home Meds: Home Meds Cyclobenzaprine [Flexeril] 10 mg PO Q6H PRN 12/06/19 [History] Metoclopramide [Reglan] 1 tab PO Q6H PRN #10 tab 08/26/20 [Rx] Ondansetron [Zofran ODT] 4 mg PO Q6H PRN 08/30/20 [History] Past Medical History HEENT History: Reports: Allergic Rhinitis, Impaired Vision Gastrointestinal History: Reports: Hiatal Hernia, PUD Other Gastrointestinal History: partial fundelectomy, GI ulcer Genitourinary History: Reports: Acute Renal Failure 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 Psychiatric History: Reports: Anxiety - Infectious Disease History Infectious Disease History: Reports: Novel Coronavirus - Past Surgical History HEENT Surgical History: Reports: Oral Surgery, Tonsillectomy GI Surgical History: Reports: Cholecystectomy, Hernia Repair/Other, Carter Fundoplication Female Surgical History: Reports: D&C, Tubal Ligation Musculoskeletal Surgical History: Reports: Arthroscopic Knee Social & Family History - Family History Family Medical History: No Pertinent Family History - Caffeine Use Caffeine Use: Reports: None - Living Situation & Occupation Living situation: Reports: , with Spouse ED ROS GENERAL - Review of Systems Review Of Systems: See Below Constitutional: Reports: Fever, Chills, Malaise, Weakness, Fatigue HEENT: Reports: No Symptoms Respiratory: Reports: Shortness of Breath, Cough Cardiovascular: Reports: No Symptoms Endocrine: Reports: No Symptoms GI/Abdominal: Reports: Diarrhea, Nausea, Vomiting. Denies: Abdominal Pain : Reports: No Symptoms Musculoskeletal: Reports: No Symptoms Skin: Reports: No Symptoms ED EXAM, GENERAL - Physical Exam Exam: See Below Exam Limited By: No Limitations General Appearance: Alert, No Apparent Distress Ears: Normal External Exam Nose: Normal Inspection Head: Atraumatic, Normocephalic Neck: Normal Inspection, Supple, Non-Tender Respiratory/Chest: No Respiratory Distress, Decreased Breath Sounds Cardiovascular: Regular Rate, Rhythm, No Edema, No Murmur GI/Abdominal: Soft, Non-Tender, No Organomegaly, No Mass Back Exam: Normal Inspection Course - Vital Signs Last Recorded V/S: Last Vital Signs Temp 100.2 F 08/31/20 06:28 Pulse 89 08/31/20 06:28 Resp 16 08/31/20 06:28 BP 130/89 08/31/20 06:28 Pulse Ox 91 L 08/31/20 06:28 - Orders/Labs/Meds Orders: Active Orders 24 hr Category Date Time Status Cardiac Monitoring [RC] . DIRECTED Care 08/31/20 07:13 Active Oxygen Therapy [RC] PRN Care 08/31/20 07:13 Active Peripheral IV Care [RC] . DIRECTED Care 08/31/20 07:14 Active Chest 1V Frontal [CR] Stat Exams 08/31/20 07:14 Taken Potassium Chloride [KCl 10 MEQ in Water 100 ML] 10 meq Med 08/31/20 13:30 Active Premix Bag 1 bag IV Q1H Sodium Chloride 0.9% [Normal Saline] 1,000 ml Med 08/31/20 07:15 Active IV .BOLUS Sodium Chloride 0.9% [Normal Saline] 1,000 ml Med 08/31/20 10:00 Active IV ASDIRECTED Sodium Chloride 0.9% [Saline Flush] Med 08/31/20 07:13 Active 10 ml FLUSH ASDIRECTED PRN ED Antiemetic Medication Reflex [OM.PC] Stat Oth 08/31/20 07:13 Ordered Peripheral IV Insertion Adult [OM.PC] Stat Oth 08/31/20 07:13 Ordered Medication Orders Sodium Chloride (Normal Saline) 1,000 mls @ 1,000 mls/hr IV .BOLUS ESTEPHANIA Last Admin: 08/31/20 07:34 Dose: 1,000 mls/hr Documented by: YESI Sodium Chloride (Normal Saline) 1,000 mls @ 150 mls/hr IV ASDIRECTED ESTEPHANIA Last Admin: 08/31/20 10:40 Dose: 150 mls/hr Documented by: YESI Potassium Chloride 10 meq/ (Premix) 100 mls @ 100 mls/hr IV Q1H ESTEPHANIA Stop: 08/31/20 17:29 Sodium Chloride (Saline Flush) 10 ml FLUSH ASDIRECTED PRN PRN Reason: Keep Vein Open Last Admin: 08/31/20 07:35 Dose: 10 ml Documented by: YESI Labs: Laboratory Tests 08/31/20 08/31/20 08/31/20 Range/Units 07:30 07:30 07:30 WBC 4.89 (3.98-10.04) K/mm3 RBC 4.23 (3.98-5.22) M/mm3 Hgb 12.4 D (11.2-15.7) gm/dl Hct 36.7 (34.1-44.9) % MCV 86.8 (79.4-94.8) fl MCH 29.3 (25.6-32.2) pg MCHC 33.8 (32.2-35.5) g/dl RDW Std Deviation 42.3 (36.4-46.3) fL Plt Count 160 L (182-369) K/mm3 MPV 9.1 L (9.4-12.3) fl Neut % (Auto) 82.8 H (34.0-71.1) % Lymph % (Auto) 9.8 L (19.3-51.7) % Mckinley % (Auto) 7.4 (4.7-12.5) % Eos % (Auto) 0 L (0.7-5.8) Baso % (Auto) 0.0 L (0.1-1.2) % Neut # (Auto) 4.05 (1.56-6.13) K/mm3 Lymph # (Auto) 0.48 L (1.18-3.74) K/mm3 Mckinley # (Auto) 0.36 (0.24-0.36) K/mm3 Eos # (Auto) 0.00 L (0.04-0.36) K/mm3 Baso # (Auto) 0.00 L (0.01-0.08) K/mm3 Manual Slide Review Abnormal smear PT 11.9 (9.7-12.0) SECONDS INR 1.11 D-Dimer, Quantitative 0.55 H (0.19-0.50) mg/L Sodium 141 (136-145) mEq/L Potassium 2.7 L (3.5-5.1) mEq/L Chloride 105 (98-107) mEq/L Carbon Dioxide 26 (21-32) mEq/L Anion Gap 12.7 (5-15) BUN 13 (7-18) mg/dL Creatinine 0.9 (0.55-1.02) mg/dL Est Cr Clr Drug Dosing TNP Estimated GFR (MDRD) > 60 (>60) mL/min BUN/Creatinine Ratio 14.4 (14-18) Glucose 126 H (74-106) mg/dL Lactic Acid (0.4-2.0) mmol/L Calcium 8.0 L (8.5-10.1) mg/dL Magnesium 1.6 L (1.8-2.4) mg/dl Ferritin (8-252) ng/ml Total Bilirubin 0.6 (0.2-1.0) mg/dL AST 26 (15-37) U/L ALT 24 (14-59) U/L Alkaline Phosphatase 41 L (46-116) U/L Lactate Dehydrogenase 278 H (81-234) U/L C-Reactive Protein 5.7 H* (<1.0) mg/dL Total Protein 6.0 L (6.4-8.2) g/dl Albumin 2.8 L (3.4-5.0) g/dl Globulin 3.2 gm/dL Albumin/Globulin Ratio 0.9 L (1-2) 08/31/20 08/31/20 Range/Units 07:30 07:30 WBC (3.98-10.04) K/mm3 RBC (3.98-5.22) M/mm3 Hgb (11.2-15.7) gm/dl Hct (34.1-44.9) % MCV (79.4-94.8) fl MCH (25.6-32.2) pg MCHC (32.2-35.5) g/dl RDW Std Deviation (36.4-46.3) fL Plt Count (182-369) K/mm3 MPV (9.4-12.3) fl Neut % (Auto) (34.0-71.1) % Lymph % (Auto) (19.3-51.7) % Mckinley % (Auto) (4.7-12.5) % Eos % (Auto) (0.7-5.8) Baso % (Auto) (0.1-1.2) % Neut # (Auto) (1.56-6.13) K/mm3 Lymph # (Auto) (1.18-3.74) K/mm3 Mckinley # (Auto) (0.24-0.36) K/mm3 Eos # (Auto) (0.04-0.36) K/mm3 Baso # (Auto) (0.01-0.08) K/mm3 Manual Slide Review PT (9.7-12.0) SECONDS INR D-Dimer, Quantitative (0.19-0.50) mg/L Sodium (136-145) mEq/L Potassium (3.5-5.1) mEq/L Chloride (98-107) mEq/L Carbon Dioxide (21-32) mEq/L Anion Gap (5-15) BUN (7-18) mg/dL Creatinine (0.55-1.02) mg/dL Est Cr Clr Drug Dosing Estimated GFR (MDRD) (>60) mL/min BUN/Creatinine Ratio (14-18) Glucose (74-106) mg/dL Lactic Acid 1.1 (0.4-2.0) mmol/L Calcium (8.5-10.1) mg/dL Magnesium (1.8-2.4) mg/dl Ferritin 312 H (8-252) ng/ml Total Bilirubin (0.2-1.0) mg/dL AST (15-37) U/L ALT (14-59) U/L Alkaline Phosphatase (46-116) U/L Lactate Dehydrogenase (81-234) U/L C-Reactive Protein (<1.0) mg/dL Total Protein (6.4-8.2) g/dl Albumin (3.4-5.0) g/dl Globulin gm/dL Albumin/Globulin Ratio (1-2) Meds: Medications Generic Name Dose Route Start Last Admin Trade Name Freq PRN Reason Stop Dose Admin Sodium Chloride 1,000 mls @ 1,000 mls/hr 08/31/20 07:15 08/31/20 07:34 Normal Saline IV 1,000 mls/hr .BOLUS ESTEPHANIA Administration Sodium Chloride 1,000 mls @ 150 mls/hr 08/31/20 10:00 08/31/20 10:40 Normal Saline IV 150 mls/hr ASDIRECTED ESTEPHANIA Administration Potassium Chloride 10 meq/ 100 mls @ 100 mls/hr 08/31/20 13:30 Premix IV 08/31/20 17:29 Q1H ESTEPHANIA Sodium Chloride 10 ml 08/31/20 07:13 08/31/20 07:35 Saline Flush FLUSH 10 ml ASDIRECTED PRN Administration Keep Vein Open Discontinued Medications Generic Name Dose Route Start Last Admin Trade Name Freq PRN Reason Stop Dose Admin Dexamethasone 6 mg 08/31/20 08:43 08/31/20 09:18 Decadron IVPUSH 08/31/20 08:44 6 mg ONETIME ONE Administration Hydromorphone HCl 0.5 mg 08/31/20 08:43 08/31/20 09:18 Dilaudid IVPUSH 08/31/20 08:44 0.5 mg ONETIME ONE Administration Remdesivir 200 mg/ Sodium 250 mls @ 250 mls/hr 08/31/20 08:44 08/31/20 09:21 Chloride IV 08/31/20 08:45 250 mls/hr ONETIME ONE Administration Metoclopramide HCl 10 mg 08/31/20 08:43 08/31/20 09:16 Reglan IVPUSH 08/31/20 08:44 10 mg ONETIME ONE Administration Ondansetron HCl 4 mg 08/31/20 07:13 08/31/20 07:34 Zofran IVPUSH 08/31/20 07:14 4 mg ONETIME ONE Administration - Re-Assessments/Exams Free Text/Narrative Re-Assessment/Exam: 08/31/20 08:26 I ordered oxygen, IV NS 1L bolus, zofran 4mg IV, labs and CXR. Her CBC looks good. Her D-dime is slightly elevated at 0.55 consistent with COVID 19. Her lactic acid is normal at 1.1. Her CXR is stable from prior CXR where she had a left lower lobe infiltrate. 08/31/20 08:29 Her K is low at 2.7. Her magnesium is a little low at 1.6. Her LDH is elevated at 278. Her CRP went up slightly from 5.5 yesterday to 5.7 today. 08/31/20 08:48 She is still having some nausea and stomach cramps. I ordered reglan 10mg IV, dilaudid 0.5mg IV for the cramps, dexamethasone 6mg IV, and remdesivir 200mg IV. With her low oxygen saturations at home I feel she needs to be admitted. Her CXR has not gotten worse but she is feeling much worse. We do not have a bed here. I called [facility] in [place] and they have no beds. [facility] is having some discharges and they will call me back. 08/31/20 13:29 They called me back and they do have a bed at the [facility]. I will transfer her by ambulance. I have ordered some potassium IV. Departure - Departure Time of Disposition: 13:30 Disposition: DC/Tfer to Acute Hospital 02 Condition: Fair Clinical Impression: COVID-19, Pneumonia due to COVID-19 virus, Hypokalemia, Nausea Diarrhea Qualifiers: Diarrhea type: unspecified type Qualified Code(s): R19.7 - Diarrhea, unspecified - Discharge Information Referrals: PCP,None [Primary Care Provider] - Forms: ED Department Discharge Sepsis Event Note (ED) - Evaluation Sepsis Screening Result: No Definite Risk - Focused Exam Vital Signs: Vital Signs Temp Pulse Resp BP Pulse Ox 08/31/20 06:28 100.2 F 89 16 130/89 91 L - My Orders Last 24 Hours: My Active Orders 08/31/20 07:13 Cardiac Monitoring [RC] . DIRECTED Oxygen Therapy [RC] PRN Sodium Chloride 0.9% [Saline Flush] 10 ml FLUSH ASDIRECTED PRN ED Antiemetic Medication Reflex [OM.PC] Stat Peripheral IV Insertion Adult [OM.PC] Stat 08/31/20 07:14 Peripheral IV Care [RC] . DIRECTED Chest 1V Frontal [CR] Stat 08/31/20 07:15 Sodium Chloride 0.9% [Normal Saline] 1,000 ml IV .BOLUS 08/31/20 10:00 Sodium Chloride 0.9% [Normal Saline] 1,000 ml IV ASDIRECTED 08/31/20 13:30 Potassium Chloride [KCl 10 MEQ in Water 100 ML] 10 meq Premix Bag 1 bag IV Q1H - Assessment/Plan Last 24 Hours: My Active Orders 08/31/20 07:13 Cardiac Monitoring [RC] . DIRECTED Oxygen Therapy [RC] PRN Sodium Chloride 0.9% [Saline Flush] 10 ml FLUSH ASDIRECTED PRN ED Antiemetic Medication Reflex [OM.PC] Stat Peripheral IV Insertion Adult [OM.PC] Stat 08/31/20 07:14 Peripheral IV Care [RC] . DIRECTED Chest 1V Frontal [CR] Stat 08/31/20 07:15 Sodium Chloride 0.9% [Normal Saline] 1,000 ml IV .BOLUS 08/31/20 10:00 Sodium Chloride 0.9% [Normal Saline] 1,000 ml IV ASDIRECTED 08/31/20 13:30 Potassium Chloride [KCl 10 MEQ in Water 100 ML] 10 meq Premix Bag 1 bag IV Q1H
[2020-08-31] MEDS ORDERED: Dexamethasone 4 MG/ML SDV IVPUSH ONE (08:43)
[2020-08-31] MEDS ORDERED: HYDROmorphone 0.5 MG/0.5 ML Syringe IVPUSH ONE (08:43)
[2020-08-31] MEDS ORDERED: Metoclopramide 10 MG/2 ML SDV IVPUSH ONE (08:43)
[2020-08-31] MEDS ORDERED: REMDESIVIR 200 MG in Sodium Chloride 0.9% 250 ML IV ONE (08:44)
[2020-08-31] MEDS ORDERED: Potassium Chloride 10 MEQ in Premix Bag 1 BAG IV SCH (13:30)
[2020-08-31] MEDS ORDERED: Acetaminophen 325 MG Tab PO ONE (13:36)
[2020-08-31 14:31] VITALS: BP 117/74; PULSE 78
--- NOTE | 2020-09-02 11:05 | CR ---
PROCEDURE INFORMATION: Exam: XR Chest, 1 View Exam date and time: 08/31/2020 7:02 AM Age: 60 years old Clinical indication: Other: Chest pain. Covid positive TECHNIQUE: Imaging protocol: XR of the chest Views: 1 view. COMPARISON: CR Chest 1V Frontal 08/30/2020 9:40 AM FINDINGS: Lungs: Interstitial prominence. Lungs appear stable. Pleural space: No significant visible pleural effusion. No pneumothorax. Heart/Mediastinum: No enlargement of cardiac silhouette. Air-filled structure in retrocardiac region consistent with hiatal hernia. Bones/joints: No acute finding. IMPRESSION: Stable appearance of chest. Thank you for allowing us to participate in the care of your patient. Dictated and Authenticated by: Sanjuana Lee MD 08/31/2020 8:38 AM Central Time ([place] & [place]) [email or web address]
== END 2020-08-31 14:20 ==
LOC: JD.ED 06:17
DX: U07.1 COVID-19 (principal); J12.89 Other viral pneumonia; E87.6 Hypokalemia; R74.02 Elevation of levels of lactic acid dehydrogenase [LDH]; R79.1 Abnormal coagulation profile; Z88.1 Allergy status to other antibiotic agents; Z88.5 Allergy status to narcotic agent; Z88.0 Allergy status to penicillin; Z91.040 Latex allergy status; Z90.49 Acquired absence of other specified parts of digestive tract; Z98.51 Tubal ligation status
CPT/HCPCS: 36415; 71045; 80053; 82728; 83605; 83615; 83735; 85025; 85379; 85610; 86140; 96365; 96367; 96375; 99285; A9270; J1100; J1170; J2405; J2765; J3480; J7030; J7050

== ENCOUNTER 2022-01-03 09:56 | Emergency (ER) | payer BC ==
[2022-01-03] MEDS ORDERED: HYDROmorphone 0.5 MG/0.5 ML Syringe IVPUSH ONE ×2 (10:33→14:07)
[2022-01-03] MEDS: Sodium Chloride 0.9% 10 ML Syringe FLUSH PRN ×2 (10:49→11:54)
[2022-01-03] MEDS: Sodium Chloride 0.9% 1,000 ML IV SCH ×2 (11:33→15:23)
[2022-01-03] MEDS ORDERED: Iopamidol 612 MG/ML 100 ML Bottle IVPUSH ONE (11:42)
[2022-01-03] MEDS ORDERED: Sodium Chloride 0.9% 10 ML Syringe FLUSH ONE (11:42)
[2022-01-03] MEDS ORDERED: Sodium Chloride 0.9% 100 ML IV SCH (11:45)
[2022-01-03] MEDS ORDERED: Ondansetron 4 MG/2 ML SDV IVPUSH ONE (14:07)
[2022-01-03] MEDS ORDERED: metroNIDAZOLE/Normal Saline 500 MG in Premix Bag 1 BAG IV ONE (14:15)
[2022-01-03] MEDS ORDERED: Sodium Chloride 0.9% 1,000 ML IV SCH (14:15)
[2022-01-03] MEDS ORDERED: Metoclopramide 10 MG/2 ML SDV IVPUSH ONE (15:16)
[2022-01-03 16:04] VITALS: BP 116/88; PULSE 88
== END 2022-01-03 16:04 | disposition home or self-care (01) ==
LOC: JD.ED 09:56
DX: K57.32 Diverticulitis of large intestine without perforation or abscess without bleeding (principal); K92.1 Melena; Z88.5 Allergy status to narcotic agent; Z91.040 Latex allergy status; Z88.0 Allergy status to penicillin; Z88.1 Allergy status to other antibiotic agents
CPT/HCPCS: 36415; 74177; 80053; 85025; 85610; 86140; 96365; 96375; 96376; 99284; J1170; J2405; J2765; J3490; J7030; Q9967; 99285